=== PATIENT | male | born 1980 | race Caucasian/White ===

== ENCOUNTER → 2017-03-18 | Outpatient (CLI) | payer BC ==
[~2017-03-18] VITALS: Ht 188 cm; Wt 94.3 kg
[~2017-03-18] MED LIST: CETI10TA84 PO; IBUP-103 PO
[2017-03-18 09:40] VITALS: BP 112/75; PULSE 79; Ht 188 cm; Wt 94.3 kg
== END | disposition home or self-care (01) ==
LOC: C.NEUR 08:25
PROVIDERS: ATTEND Internal Medicine Pulmonary Disease
DX: R53.83 Other fatigue (principal); G47.33 Obstructive sleep apnea (adult) (pediatric)

== ENCOUNTER → 2017-04-05 | Outpatient (CLI) | payer BC ==
--- NOTE | 2017-04-07 15:25 | Sleep Study ---
Sleep Study Report Date of Service: 04/05/2017 Sleep Study Report Clinical data: The patient is a 36-year-old male with complaints of fatigue and daytime tiredness. This has been present for more than 3 years. At times he feels like he is in a "brain fog" his Startex score is 5 out of a possible 24. On the evening of 04/05/2017 a home sleep apnea test was performed using a [place] type 3 monitor. Recording results: The total recording time was 9.7 hours. The patient estimated sleep time was 7.9 hours. Respiratory data: The patient had a total of 4 respiratory events including 3 central apneas and 1 hypopnea. Hypopneas were scored according to the 4 percent desaturation rule. The AUDRA was normal at 0.5 events per hour. The maximum respiratory event was 21 seconds. Oximetry data: The mean saturation for the night was 94 percent. The minimum saturation was 90 percent. Heart rate data: The lowest heart rate was 58 beats per minute. The mean heart rate was 69 beats per minute. Snoring data: Some snoring was present. Impressions: 1. No evidence of obstructive sleep apnea Recommendations: 1. The patient should follow up with his primary physician, Dr. Mark Wheat Copies To 1: Velasquez Hook DO; Mark Wheat, DO
== END | disposition home or self-care (01) ==
LOC: C.NEUR 10:57
PROVIDERS: ATTEND Internal Medicine Pulmonary Disease
DX: G47.33 Obstructive sleep apnea (adult) (pediatric) (principal)